=== PATIENT | female | born 1965 | race Caucasian/White ===

== ENCOUNTER 2021-09-21 07:38 | Outpatient (CLI) | payer OTHER, SELFPAY ==
--- NOTE | ~2021-09-21 | MR_ITS ---
EXAMINATION: MR cervical spine wo con EXAM DATE: 09/21/2021 08:29 INDICATION: Right sided neck pain w radicular pain. TECHNIQUE: Multi-sequential, multiplanar MR images of the cervical spine were obtained without contra st. Axial T2, axial T2 MERGE sequence. Sagittal T1, T2, T2 fat saturation images also obtained. Th ere is no prior study for comparison. FINDINGS: Mild to moderate loss of the C6-7 disc height, mild at C5-6. The vertebral body and disc h eights are otherwise well maintained. The vertebral bodies are aligned in the AP dimension. The spina l cord signal intensity and intrinsic morphology is normal. Cervicomedullary junction is normal in ap pearance. There are no suspicious marrow signal abnormalities. Paraspinal soft tissue is unremarkable . Level by level evaluation: C2-C3: Disc does not extend beyond the endplate margin. Uncovertebral joint arthropathy: None. Facet joint arthropathy: Mild. Neural foraminal stenosis: No stenosis. Central canal stenosis: No stenosis. C3-C4: Disc does not extend beyond the endplate margin. Uncovertebral joint arthropathy: Mild. Facet joint arthropathy: Moderate bilateral, left greater than right. Neural foraminal stenosis: No stenosis. Central canal stenosis: No stenosis. C4-C5: Disc does not extend beyond the endplate margin. Uncovertebral joint arthropathy: Minimal. Facet joint arthropathy: Moderate right, mild left. Neural foraminal stenosis: No stenosis. Central canal stenosis: No stenosis. C5-C6: There is a minimal diffuse disc bulge. Uncovertebral joint arthropathy: Mild left, minimal right. Facet joint arthropathy: Mild bilateral. Neural foraminal stenosis: No stenosis. Central canal stenosis: No stenosis. C6-C7: There is a mild to moderate diffuse disc bulge. Uncovertebral joint arthropathy: Moderate to severe left, mild to moderate right. Facet joint arthropathy: Mild. Neural foraminal stenosis: Moderate left. Central canal stenosis: Mild. C7-T1: Disc does not extend beyond the endplate margin. Uncovertebral joint arthropathy: Mild bilateral. Facet joint arthropathy: Mild to moderate right. Neural foraminal stenosis: Mild right. Central canal stenosis: No stenosis. IMPRESSION: C6-7 moderate left neural foraminal stenosis. Less stenosis other levels. Reviewed, dictated and finalized at location B. ENING NURSE IMPRESSION: C6-7 moderate left neural foraminal stenosis. Less stenosis other l evels.
== END 2021-09-21 07:39 | disposition home or self-care (01) ==
PROVIDERS: PCP Family Medicine
DX: M54.12 Radiculopathy, cervical region (principal); M48.02 Spinal stenosis, cervical region
CPT/HCPCS: 72141